=== PATIENT | male | born 1985 | race Caucasian/White ===

== ENCOUNTER 2019-09-30 07:30 | Emergency (ER) | payer OTHER ==
[~2019-09-30] VITALS: Ht 172.7 cm; Wt 124.7 kg
[2019-09-30] MEDS ORDERED: NAPROSYN500 M1 PO (09:29)
[2019-09-30] MEDS ORDERED: CYCLOBENZAPRINE5 MG PO (09:29)
[2019-09-30] MEDS ORDERED: NORCO 5-325 TA1 EAC1 PO (09:29)
[2019-09-30 09:40] VITALS: BP 155/88
== END 2019-09-30 09:41 | disposition home or self-care (01) ==
LOC: M.ERS 07:30
DX: S30.0XXA Contusion of lower back and pelvis, initial encounter (principal); S00.83XA Contusion of other part of head, initial encounter; S69.91XA Unspecified injury of right wrist, hand and finger(s), initial encounter; F31.9 Bipolar disorder, unspecified; F41.9 Anxiety disorder, unspecified; F17.210 Nicotine dependence, cigarettes, uncomplicated; Z88.0 Allergy status to penicillin; V09.9XXA Pedestrian injured in unspecified transport accident, initial encounter; Y93.89 Activity, other specified; Y92.89 Other specified places as the place of occurrence of the external cause; Y99.8 Other external cause status

== ENCOUNTER 2019-12-04 06:36 | Emergency (ER) | payer OTHER ==
[~2019-12-04] VITALS: Ht 172.7 cm; Wt 113.8 kg
[~2019-12-04 06:36] MED LIST: CYCLOBENZAPRINE5 MG PO; NAPROSYN500 M1 PO; NORCO 5-325 TA1 EAC1 PO
[2019-12-04] MEDS ORDERED: PREDNISONE 20 M20 M1 PO (07:29)
[2019-12-04] MEDS ORDERED: ZPAK PO (07:29)
[2019-12-04] MEDS ORDERED: VENTOLIN HFA 1818 GM INH (07:29)
[2019-12-04 08:34] VITALS: BP 138/81
== END 2019-12-04 08:34 | disposition home or self-care (01) ==
LOC: M.ERS 06:36
DX: J40 Bronchitis, not specified as acute or chronic (principal); F41.9 Anxiety disorder, unspecified; F31.9 Bipolar disorder, unspecified; F17.210 Nicotine dependence, cigarettes, uncomplicated; Z88.0 Allergy status to penicillin

== ENCOUNTER 2020-03-29 08:48 | Emergency (ER) | payer OTHER ==
[~2020-03-29] VITALS: Ht 172.7 cm; Wt 110.7 kg
[~2020-03-29 08:48] MED LIST changes: +PREDNISONE 20 M20 M1 PO; +VENTOLIN HFA 1818 GM INH; +ZPAK PO
[2020-03-29] MEDS ORDERED: KEFLEX500 M1 PO (09:30)
[2020-03-29 09:48] VITALS: BP 130/85
== END 2020-03-29 09:48 | disposition home or self-care (01) ==
LOC: M.ERS 08:48
DX: S61.212A Laceration without foreign body of right middle finger without damage to nail, initial encounter (principal); F12.90 Cannabis use, unspecified, uncomplicated; F17.210 Nicotine dependence, cigarettes, uncomplicated; Z88.0 Allergy status to penicillin; W45.8XXA Other foreign body or object entering through skin, initial encounter; Y93.89 Activity, other specified; Y92.098 Other place in other non-institutional residence as the place of occurrence of the external cause; Y99.9 Unspecified external cause status

== ENCOUNTER 2020-08-22 09:59 | Emergency (ER) | payer OTHER ==
[~2020-08-22] VITALS: Ht 172.7 cm; Wt 95.3 kg
[~2020-08-22 09:59] MED LIST changes: +KEFLEX500 M1 PO
[2020-08-22 10:15] LABS: URINE BILIRUBIN NEGATIVE (Negative); URINE BLOOD NEGATIVE (Negative); URINE CLARITY CLEAR; URINE COLOR YELLOW; URINE GLUCOSE-RANDOM NEGATIVE (Negative); URINE KETONES NEGATIVE (Negative); URINE LEUKOCYTES-REFLEX NEGATIVE (Negative); URINE NITRITE-REFLEX NEGATIVE (Negative); URINE PROTEIN NEGATIVE (Negative); URINE SPECIFIC GRAVITY >= 1.030 (1.005-1.030); URINE UROBILINOGEN 0.2 E.U./dl (0.2-1.0)
[2020-08-22 10:45] LABS: ABSOLUTE BASOPHILS 0.1 thou/uL (0.0-0.2); ABSOLUTE EOSINOPHILS 0.2 thou/uL (0.0-0.7); ABSOLUTE MONOCYTES 0.8 thou/uL (0.0-1.2); ABSOLUTE NEUTROPHILS 3.9 thou/uL (1.6-8.1); BASOPHILS 1.1 %; HEMATOCRIT 43.6 % (42.0-52.0); HEMOGLOBIN 14.4 gm/dL (14.0-18.0); MCH 31.7 pg (26.0-34.0); MCV 96.1 fL (80.0-100.0); MONOCYTES 9.6 %; MPV 6.7 fl. (7.2-11.1); NUCLEATED RBCS 0 /100WBC; PLATELET COUNT* 295 thou/uL (150-400); POLYS 49.3 %; RBC 4.53 mil/uL (4.50-6.00); RDW-CV 13.6 % (10.5-14.5); WBC 7.9 thou/uL (4.0-11.0)
[2020-08-22 10:53] LABS: CALCIUM 8.5 mg/dL (8.5-10.1); CREATININE 1.3 mg/dL (0.6-1.3); POTASSIUM 4.2 mmol/L (3.5-5.1)
[2020-08-22 10:58] LABS: ALBUMIN 3.5 g/dL (3.4-5.0); TOTAL BILIRUBIN 0.2 mg/dL (<0.1-1.0); TOTAL PROTEIN 6.9 g/dL (6.4-8.2)
[2020-08-22] MEDS ORDERED: TRAMADOL 50 MG50 MG PO (12:58)
[2020-08-22 13:08] VITALS: BP 187/115
== END 2020-08-22 13:08 | disposition home or self-care (01) ==
LOC: M.ERS 09:59
PROVIDERS: Nurse Practitioner Family
DX: K62.5 Hemorrhage of anus and rectum (principal); K62.89 Other specified diseases of anus and rectum; F17.210 Nicotine dependence, cigarettes, uncomplicated; Z88.0 Allergy status to penicillin

== ENCOUNTER 2020-12-25 11:19 | Emergency (ER) | payer OTHER ==
[~2020-12-25] VITALS: Ht 172.7 cm; Wt 118.8 kg
[~2020-12-25 11:19] MED LIST changes: +TRAMADOL 50 MG50 MG PO
[2020-12-25 11:29] VITALS: BP 158/98
[2020-12-25 11:39] LABS: ABSOLUTE BASOPHILS 0.1 thou/uL (0.0-0.2); ABSOLUTE EOSINOPHILS 0.2 thou/uL (0.0-0.7); ABSOLUTE LYMPHOCYTES 3.4 thou/uL (0.8-5.3); ABSOLUTE MONOCYTES 0.6 thou/uL (0.0-1.2); ABSOLUTE NEUTROPHILS 3.3 thou/uL (1.6-8.1); BASOPHILS 0.8 %; MCH 33.1 pg (26.0-34.0); MCHC 34.9 g/dL (28.0-37.0); MCV 94.8 fL (80.0-100.0); MONOCYTES 7.7 %; MPV 6.6 fl. (7.2-11.1); NUCLEATED RBCS 0 /100WBC; PLATELET COUNT* 322 thou/uL (150-400); POLYS 43.5 %; RBC 4.85 mil/uL (4.50-6.00); WBC 7.5 thou/uL (4.0-11.0)
[2020-12-25 11:52] LABS: CREATININE 1.2 mg/dL (0.6-1.3); POTASSIUM 4.5 mmol/L (3.5-5.1)
[2020-12-25 12:02] LABS: ALBUMIN 3.7 g/dL (3.4-5.0); MAGNESIUM 2.1 mg/dL (1.8-2.4); TOTAL BILIRUBIN 0.2 mg/dL (<0.1-1.0); TOTAL PROTEIN 7.3 g/dL (6.4-8.2)
[2020-12-25] MEDS ORDERED: VENTOLIN HFA 1818 GM INH (12:13)
[2020-12-25] MEDS ORDERED: TESSALON PERLE100 M1 PO (12:13)
--- NOTE | 2020-12-26 12:08 | EKG ---
[place] [address] ELECTROCARDIOGRAM REPORT Name: CHRISTIANO MAXWELL Room: [facility]#: [id number] Admission: 12/25/20 Attend Phys: Discharge: 12/25/20 Date of : 81 Date of Service: 12/25/20 1124 Report #: [id number] THIS REPORT FOR: //name// [facility] ED Test Date: 2020-12-25 Test Time: 11:24:24 Pat Name: CHRISTIANO MAXWELL Department: Room: Gender: Delivery Rep: [place] : 1985 Requested By: Anuj Tobar Order Number: [id number] MD: Dillon Briggs Measurements Intervals [place] Rate: 88 P: 65 TX: 171 QRS: 60 QRSD: 87 T: 21 QT: 375 QTc: 454 Interpretive Statements Sinus rhythm Baseline wander in lead(s) V1 No previous ECG available for comparison Electronically Signed On 12-26-2020 12:08:20 CDT by Dillon Briggs [email or web address] <ELECTRONICALLY SIGNED> By: Dillon Briggs MD, [facility] 12/26/20 1208 1124 1124 Dillon Briggs MD, [facility] /EPI
== END 2020-12-25 12:28 | disposition home or self-care (01) ==
LOC: M.ERS 11:19
PROVIDERS: Emergency Medicine Emergency Medical Services
DX: J40 Bronchitis, not specified as acute or chronic (principal); Z20.822 Contact with and (suspected) exposure to COVID-19; F17.210 Nicotine dependence, cigarettes, uncomplicated; Z88.0 Allergy status to penicillin

== ENCOUNTER 2021-02-25 11:02 | Emergency (ER) | payer OTHER ==
[~2021-02-25] VITALS: Ht 172.7 cm; Wt 120.7 kg
[~2021-02-25 11:02] MED LIST changes: +TESSALON PERLE100 M1 PO
[2021-02-25 11:20] VITALS: BP 152/98
== END 2021-02-25 11:26 | disposition home or self-care (01) ==
LOC: M.ERS 11:02
DX: Z20.822 Contact with and (suspected) exposure to COVID-19 (principal); F17.210 Nicotine dependence, cigarettes, uncomplicated; Z88.0 Allergy status to penicillin

== ENCOUNTER 2021-05-19 23:33 | Emergency (ER) | payer OTHER ==
[~2021-05-19] VITALS: Ht 172.7 cm; Wt 117.9 kg
[2021-05-19 23:44] VITALS: BP 143/99
== END 2021-05-20 | disposition left against medical advice (07) ==
LOC: M.ERS 23:33
DX: M25.512 Pain in left shoulder (principal); F41.9 Anxiety disorder, unspecified; F32.9 Major depressive disorder, single episode, unspecified; F17.210 Nicotine dependence, cigarettes, uncomplicated; Z88.0 Allergy status to penicillin